=== PATIENT | male | born 1970 | race Caucasian/White ===

== ENCOUNTER 2019-03-24 07:13 | Observation (INO) | payer MEDICAID, OTHER, SELFPAY ==
[~2019-03-24] VITALS: Ht 172.7 cm; Wt 98.5 kg
[2019-03-24] MEDS ORDERED: NITROGLYCERIN SINGLE TAB 0.4 MG SL ONE (07:38)
[2019-03-24] MEDS ORDERED: ASPIRIN 81 MG TABLET CHEW ONE (07:38)
[2019-03-24] MEDS: NITROGLYCERIN SINGLE TAB 0.4 MG SL PRN ×3 (07:49→08:01)
[2019-03-24 07:52] LABS: BASOPHILS # (AUTO) 0.08 x10^3/uL (0-0.1); BASOPHILS % (AUTO) 1 % (0-1); EOSINOPHILS # (AUTO) 0.28 x10^3/uL (0-0.4); EOSINOPHILS % (AUTO) 3 % (1-7); LYMPHOCYTES # (AUTO) 2.18 x10^3/uL (1-3.4); LYMPHOCYTES % (AUTO) 21 % (22-44); MD NO; MEAN CORPUSCULAR HEMOGLOBIN 30.2 pg (27.5-34.5); MEAN CORPUSCULAR HGB CONC 33.3 g/dL (33.2-36.2); MEAN CORPUSCULAR VOLUME 90.8 fL (81-97); MEAN PLATELET VOLUME 7.5 fL (7.4-10.4); MONOCYTES # (AUTO) 0.95 x10^3/uL (0.2-0.8); MONOCYTES % (AUTO) 9 % (2-9); NEUTROPHILS # (AUTO) 6.77 x10^3/uL (1.8-6.8); NEUTROPHILS % (AUTO) 66 % (42-75); PLATELET COUNT 308 x10^3/uL (130-400); RED BLOOD COUNT 5.23 x10^6/uL (4.38-5.82); RED CELL DISTRIBUTION WIDTH 14.1 % (9.4-14.8)
[2019-03-24] MEDS ORDERED: SODIUM CHLORIDE FLUSH 10ML SYR IVF ONE (08:00)
[2019-03-24] MEDS ORDERED: ASPIRIN 81 MG TABLET CHEW PO ONE (08:00)
[2019-03-24 08:04] LABS: ANION GAP 6 mmol/L (5-15); CALCIUM 9.1 mg/dL (8.5-10.1); CHLORIDE 108 mmol/L (98-107); CREATININE 1.21 mg/dL (0.7-1.3)
--- NOTE | 2019-03-24 08:07 | NUR ---
3 doses of nitro given. pt states chest pain is better. PA notified.
[2019-03-24 08:08] LABS: TROPONIN I < 0.015 ng/mL (0.000-0.045)
--- NOTE | 2019-03-24 09:12 | NUR ---
PT RESTING IN BED STATING HIS PAIN IS GONE AND HE FEELS MUCH BETTER. DENIES NEEDS. CALL LIGHT IN REACH.
--- NOTE | 2019-03-24 09:54 | NUR ---
Called at [phone] to give report to floor RN. Placed on hold for for 3 minutes. Will call back to provide report.
--- NOTE | 2019-03-24 10:02 | NUR ---
Provided report to Saige Stephenson. All questions answered. Pt ready to transfer to floor from ED.
[2019-03-24 10:40] VITALS: BP 183/99
[2019-03-24] MEDS: NICOTINE 7 MG/24 HR PATCH.TD24 TD SCH (12:30)
[2019-03-24] MEDS ORDERED: hydrALAzine 20 MG/ML, 1ML IVPush PRN (12:30)
[2019-03-24] MEDS ORDERED: ACETAMINOPHEN 325 MG TABLET PO PRN (12:30)
[2019-03-24] MEDS ORDERED: morphine SULFATE 10 MG/ML, 1ML IVPush PRN (12:30)
[2019-03-24] MEDS ORDERED: OXYcodone IR 5MG TABLET PO PRN (12:30)
[2019-03-24] MEDS ORDERED: ONDANSETRON 2MG/ML, 2ML IVPush PRN (12:30)
[2019-03-24] MEDS ORDERED: CYCLOBENZAPRINE 10 MG TABLET PO PRN (12:30)
[2019-03-24] MEDS ORDERED: NITROGLYCERIN 0.4 MG BOTTLE (25 TABS) SL PRN (12:30)
[2019-03-24] MEDS ORDERED: DOCUSATE 100 MG CAPSULE PO PRN (12:30)
[2019-03-24] MEDS: LISINOPRIL 20 MG TABLET PO SCH (12:55)
[2019-03-24] MEDS: HYDROCHLOROTHIAZIDE 25 MG TABLET PO SCH (12:55)
[2019-03-24 13:52] VITALS: BP 158/93
[2019-03-24 14:35] LABS: TROPONIN I < 0.015 ng/mL (0.000-0.045)
[2019-03-24 15:10] VITALS: BP 177/109
[2019-03-24 17:08] LABS: AMPHETAMINE SCREEN, URINE Positive (Negative); BARBITURATE SCREEN, URINE Negative (Negative); BENZODIAZEPINE SCREEN, URINE Negative (Negative); CANNABINOID SCREEN, URINE Negative (Negative); COCAINE SCREEN, URINE Negative (Negative); METHADONE SCREEN, URINE Negative (Negative); OPIATE SCREEN, URINE Negative (Negative)
[2019-03-24 19:57] VITALS: BP 144/91
[2019-03-24 19:59] LABS: TROPONIN I < 0.015 ng/mL (0.000-0.045)
[2019-03-25 00:51] VITALS: BP 145/78
[2019-03-25 05:25] LABS: BASOPHILS # (AUTO) 0.05 x10^3/uL (0-0.1); BASOPHILS % (AUTO) 1 % (0-1); EOSINOPHILS # (AUTO) 0.31 x10^3/uL (0-0.4); EOSINOPHILS % (AUTO) 3 % (1-7); LYMPHOCYTES # (AUTO) 2.67 x10^3/uL (1-3.4); LYMPHOCYTES % (AUTO) 27 % (22-44); MD NO; MEAN CORPUSCULAR HEMOGLOBIN 30.2 pg (27.5-34.5); MEAN CORPUSCULAR HGB CONC 32.5 g/dL (33.2-36.2); MEAN PLATELET VOLUME 7.9 fL (7.4-10.4); MONOCYTES # (AUTO) 0.78 x10^3/uL (0.2-0.8); MONOCYTES % (AUTO) 8 % (2-9); NEUTROPHILS # (AUTO) 6.26 x10^3/uL (1.8-6.8); NEUTROPHILS % (AUTO) 62 % (42-75); PLATELET COUNT 299 x10^3/uL (130-400); RED BLOOD COUNT 5.38 x10^6/uL (4.38-5.82)
[2019-03-25 05:33] LABS: CHLORIDE 108 mmol/L (98-107)
[2019-03-25 05:54] LABS: ANION GAP 7 mmol/L (5-15); CALCIUM 8.7 mg/dL (8.5-10.1); CREATININE 1.04 mg/dL (0.7-1.3)
[2019-03-25 05:55] LABS: CHOL/HDL RATIO 3.5; CHOLESTEROL, TOTAL 187 mg/dL (140-239); HDL CHOL % 29 % (26-37); HDL CHOLESTEROL (DIRECT) 54 mg/dL (40-60); LDL CHOLESTEROL,CALCULATED 110 mg/dL (54-169); THYROID STIMULATING HORMONE 0.818 mIU/L (0.358-3.740); TRIGLYCERIDES 116 mg/dL (50-200); VLDL CHOLESTEROL 23 mg/dL (0-25)
[2019-03-25 08:30] VITALS: BP 121/94
[2019-03-25 09:30] VITALS: BP 137/81
[2019-03-25] MEDS: LISINOPRIL 20 MG TABLET PO SCH (09:39)
[2019-03-25] MEDS: HYDROCHLOROTHIAZIDE 25 MG TABLET PO SCH (09:40)
[2019-03-25] MEDS: NICOTINE 7 MG/24 HR PATCH.TD24 TD SCH (09:43)
[2019-03-25] MEDS ORDERED: HYDROCHLOROTH12.5 MG PO (10:10)
[2019-03-25] MEDS ORDERED: LISI-170 PO (10:10)
[2019-03-25] MEDS ORDERED: ASPI81TA45 PO (10:15)
[2019-03-25 17:11] LABS: HEMOGLOBIN A1C 5.6 % (4.2-6.3)
== END 2019-03-25 15:40 | disposition home or self-care (01) ==
LOC: ED 09:10 → EDIP 09:11 → INTOOBSV 09:11 → 5SO 10:32 → DCLOUNGE 03-25 15:34
PROVIDERS: ADMIT Internal Medicine; ATTEND Internal Medicine
DX: R07.89 Other chest pain (principal); I10 Essential (primary) hypertension; F15.90 Other stimulant use, unspecified, uncomplicated; E66.9 Obesity, unspecified; F17.210 Nicotine dependence, cigarettes, uncomplicated; Z79.82 Long term (current) use of aspirin; Z79.899 Other long term (current) drug therapy; Z82.5 Family history of asthma and other chronic lower respiratory diseases
CPT/HCPCS: 0399T; 36415; 71046; 80048; 80061; 80307; 83036; 83735; 84100; 84443; 84484; 85025; 93005; 93017; 93306; 96374; 99284; G0378; J0360